=== PATIENT | female | born 2005 | race Caucasian/White ===

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

== ENCOUNTER 2025-04-27 14:05 | Emergency (ER) | payer SELFPAY | END 2025-04-27 15:15 | disposition left against medical advice (07) | LOC: ERS 14:05 | DX: Z53.21 Procedure and treatment not carried out due to patient leaving prior to being seen by health care provider (principal) ==

== ENCOUNTER 2025-07-08 19:27 | Emergency (ER) | payer SELFPAY ==
[2025-07-08] MEDS ORDERED: Metoclopramide HCl 10 MG (2 mL) VIAL ONE (21:02)
[2025-07-08] MEDS ORDERED: diphenhydrAMINE 50 MG/ML VIAL ONE (21:02)
[2025-07-08] MEDS ORDERED: Ketorolac Tromethamine 30 MG (1 mL) VIAL ONE (21:02)
[2025-07-08 21:21] LABS: #Basophils 0.03 10x3/uL (0.0-0.2); #Eosinophils 0.05 10x3/uL (0.0-0.7); #Monocytes 0.88 10x3/uL (0.11-0.59); #Neutrophils 9.19 10x3/uL (1.40-6.50); %Basophils 0.2 % (0.0-1.0); %Eosinophils 0.4 % (0.0-10.0); %Lymphocytes 20.3 % (28.0-48.0); %Monocytes 6.9 % (0.0-4.0); %Neutrophils 72.0 % (31.0-61.0); Hematocrit 40.0 % (36.0-47.0); Hemoglobin 14.0 g/dL (12.0-16.0); Mean Corpuscular Hemoglobin 29.7 pg (25.0-35.0); Mean Corpuscular Volume 84.9 fL (78.0-98.0); Platelet Count 289 10x3/uL (130-400); Red Blood Cell (RBC) Count 4.71 mill/uL (4.00-5.20); White Blood Cell (WBC) Count 12.77 10x3/uL (4.8-10.8)
[2025-07-08 21:36] LABS: BHCG - Serum Negative (NEGATIVE); Pregs Control Background? CLEAR/WHITE (CLR/WHITE); Pregs Control Bar Appear? YES (CONTROL BAR)
[2025-07-08 21:37] LABS: ALT (SGPT) 17 U/L (Less than 34); AST (SGOT) 22 U/L (11-34); Albumin 5.0 g/dL (3.1-4.5); Alkaline Phosphatase 65 U/L (40-100); Anion Gap 14 mmol/L (10-20); BUN (Urea Nitrogen) 13 mg/dL (7.0-18.7); Bilirubin, Total 1.8 mg/dL (0.3-1.2); Calc. Creatinine Clearance 0 mL/min (70-130); Calcium 9.6 mg/dL (7.8-10.44); Carbon Dioxide 22 mmol/L (22-29); Chloride 109 mmol/L (98-107); Globulin 2.8 g/dL (2.4-3.5); Glucose 87 mg/dL (70-105); Potassium 3.7 mmol/L (3.5-5.1); Sodium 141 mmol/L (136-145)
[2025-07-09 01:20] LABS: Bacteria/HPF None Seen HPF (None Seen); CAUTI Indications for Culture Pelvic or flank pain; Glucose, Urine (Dipstick) Normal (Negative); Leukocyte 25 Leu/uL (Negative); Protein, Urine (Dipstick) 20 mg/dL (Neg-Trace); RBC/HPF 0-3 HPF (0-3); Specific Gravity, Urine 1.037 (1.002-1.036); WBC/HPF None Seen HPF (0-3)
[2025-07-09 01:21] LABS: Urine Culture Reflex No No
== END 2025-07-09 02:23 | disposition home or self-care (01) ==
LOC: ERS 19:27
DX: R51.9 Headache, unspecified (principal)
CPT/HCPCS: 70450; 80053; 81001; 84703; 85025; 96374; 96375; 96376; J1200; J1885; J2765; J2919; J3010

== ENCOUNTER 2025-07-13 13:43 | Emergency (ER) | payer SELFPAY ==
[2025-07-13 15:12] LABS: #Basophils 0.04 10x3/uL (0.0-0.2); #Eosinophils 0.11 10x3/uL (0.0-0.7); #Monocytes 0.61 10x3/uL (0.11-0.59); #Neutrophils 6.25 10x3/uL (1.40-6.50); %Basophils 0.4 % (0.0-1.0); %Eosinophils 1.0 % (0.0-10.0); %Lymphocytes 33.3 % (28.0-48.0); %Monocytes 5.8 % (0.0-4.0); %Neutrophils 59.2 % (31.0-61.0); Hematocrit 39.8 % (36.0-47.0); Hemoglobin 13.5 g/dL (12.0-16.0); Mean Corpuscular Hemoglobin 28.9 pg (25.0-35.0); Mean Corpuscular Volume 85.2 fL (78.0-98.0); Platelet Count 307 10x3/uL (130-400); Red Blood Cell (RBC) Count 4.67 mill/uL (4.00-5.20); White Blood Cell (WBC) Count 10.55 10x3/uL (4.8-10.8)
[2025-07-13 15:27] LABS: ALT (SGPT) 21 U/L (Less than 34); AST (SGOT) 20 U/L (11-34); Albumin 4.8 g/dL (3.1-4.5); Alkaline Phosphatase 59 U/L (40-100); Anion Gap 12 mmol/L (10-20); BUN (Urea Nitrogen) 12 mg/dL (7.0-18.7); Bilirubin, Total 1.4 mg/dL (0.3-1.2); Calc. Creatinine Clearance 0 mL/min (70-130); Calcium 9.7 mg/dL (7.8-10.44); Carbon Dioxide 23 mmol/L (22-29); Chloride 105 mmol/L (98-107); Globulin 2.8 g/dL (2.4-3.5); Glucose 89 mg/dL (70-105); Potassium 3.7 mmol/L (3.5-5.1); Sodium 136 mmol/L (136-145)
[2025-07-13] MEDS ORDERED: Droperidol 5 MG/2 ML VIAL ONE (15:52)
[2025-07-13 16:14] LABS: Pregnancy Test - Urine (BHCG) Negative (Negative); Pregu Control Background? CLEAR/WHITE (CLR/WHITE); Pregu Control Bar Appear? YES (CONTROL BAR)
[2025-07-13 16:20] LABS: CAUTI Indications for Culture Pelvic or flank pain; Glucose, Urine (Dipstick) Normal (Negative); Leukocyte Negative Leu/uL (Negative); Protein, Urine (Dipstick) Negative (Neg-Trace); RBC/HPF 0-3 HPF (0-3); Specific Gravity, Urine 1.015 (1.002-1.036); WBC/HPF 0-3 HPF (0-3)
[2025-07-13 16:21] LABS: Bacteria/HPF 1+ HPF (None Seen); Urine Culture Reflex No No
[2025-07-13 16:55] LABS: MONO NEGATIVE CONTROL ZONE White (Negative) (White); MONO POSITIVE CONTROL Pink Line (Positive) (PINK/RED); Mononucleosis NEGATIVE (NEGATIVE)
== END 2025-07-13 16:43 | disposition left against medical advice (07) ==
LOC: ERS 13:43
DX: R51.9 Headache, unspecified (principal); E80.7 Disorder of bilirubin metabolism, unspecified
CPT/HCPCS: 80053; 81001; 81025; 82248; 85025; 86308; 87428; 96374; J1790